=== PATIENT | female | born 1945 | race Caucasian/White ===

== ENCOUNTER 2017-02-06 08:13 | Day surgery (SDC) | payer BC ==
[~2017-02-06] VITALS: Ht 165.1 cm; Wt 57.1 kg
[~2017-02-06 08:13] MED LIST: ACTOS30 PO; AMB5 PO; CULTURELLE1 EACH PO; JANUVIA50 PO; LIPITOR10 PO; MULTIPLE VIT PO; OTC EYE DROPS; PRILO PO; PVC V; TYLENOL PM PO; ULORIC40 MG PO; UTA OR; VESICARE5 PO; VITAMIN D3/CALCIUM; [UNRECOGNIZED DRUG - OTHER]
== END 2017-02-06 23:59 | disposition home or self-care (01) ==
LOC: DMU 08:13
PROVIDERS: Internal Medicine Gastroenterology
PROC: 0DB68ZX Excision of Stomach, Via Natural or Artificial Opening Endoscopic, Diagnostic (ICD-10-PCS; 2017-02-06)
PROC: 0DB58ZX Excision of Esophagus, Via Natural or Artificial Opening Endoscopic, Diagnostic (ICD-10-PCS; 2017-02-06)
PROC: 0DBH8ZX Excision of Cecum, Via Natural or Artificial Opening Endoscopic, Diagnostic (ICD-10-PCS; principal; 2017-02-06 10:30)
PROC: 0DB98ZX Excision of Duodenum, Via Natural or Artificial Opening Endoscopic, Diagnostic (ICD-10-PCS; 2017-02-06 10:30)
DX: D12.0 Benign neoplasm of cecum (principal); K57.30 Diverticulosis of large intestine without perforation or abscess without bleeding; K29.50 Unspecified chronic gastritis without bleeding; K20.9 Esophagitis, unspecified; K21.0 Gastro-esophageal reflux disease with esophagitis; E11.22 Type 2 diabetes mellitus with diabetic chronic kidney disease; N18.3 Chronic kidney disease, stage 3 (moderate); B15.9 Hepatitis A without hepatic coma; Z88.0 Allergy status to penicillin; Z79.899 Other long term (current) drug therapy; Z98.41 Cataract extraction status, right eye; Z98.42 Cataract extraction status, left eye; Z98.890 Other specified postprocedural states; Z96.1 Presence of intraocular lens
CPT/HCPCS: 82962; 88305; 88342